=== PATIENT | male | born 1960 | race Caucasian/White ===

== ENCOUNTER 2020-05-18 10:08 | Outpatient (NON) | payer BC, SELFPAY ==
[2020-05-18 14:23] LABS: Influenza Control Positive
[2020-05-19 18:38] LABS: SARS-CoV-2 RNA PCR Positive
== END 2020-05-18 10:09 ==
LOC: ANHCOVIDDT 10:09
PROVIDERS: PCP Family Medicine; Visit Provider Family Medicine
DX: R05 Cough (principal); U07.1 COVID-19
CPT/HCPCS: 87635; 87804; C9803; U0003

== ENCOUNTER 2021-06-25 00:37 | Day surgery (SDC) | payer BC, SELFPAY ==
[2021-06-14 14:24] VITALS: BMI 28.8
--- NOTE | 2021-06-23 19:37 | PM.HPGS ---
History of Present Illness History of Present Illness Consent: Risks, benefits, and alternatives have been discussed and questions answered. Patient agrees to proceed with procedure. Chief complaint: neoplasm screening Narrative: Hai Mills is a 61 year old male referred forcoloncancer screening Review of Systems Review of Systems: All systems reviewed & are unremarkable except as noted in HPI and below PMFSH Past Medical History Medical History Allergies Broken arm Dislocation of finger Hypertension Irritable bowel syndrome Surgical History Surgical History Finger dislocation H/O skin graft History of surgery on arm Family History Family History Father Diabetes mellitus Hyperlipidemia Grandparent Heart disease Grandparent COPD (chronic obstructive pulmonary disease) Other Hypertension Social History Social History Smoking status: Former smoker Second hand tobacco smoke exposure: No Smoking end date: 05/19/91 Alcohol intake: current Substance use: never Substance use type: does not use Living arrangements: alone Gender identity (if verbalized by the patient): Male Spiritual care concerns: No Agree to blood products: Yes Meds Home Medications and Allergies Home Medications Medication Instructions Recorded Confirmed Type cetirizine 10 mg capsule 10 mg PO DAILY #90 cap 05/01/21 06/14/21 Rx lisinopril 10 mg tablet 10 mg PO DAILY #90 tablet 05/01/21 06/14/21 Rx nystatin 100,000 unit/gram topical 1 applic TOPICAL BID #30 g 05/01/21 06/14/21 Rx ointment Allergies Allergy/AdvReac Type Severity Reaction Status Date / Time No Known Allergies Allergy Mild Verified 06/25/21 06:28 Exam Const: General: alert Orientation/consciousness: patient oriented x3 Resp: Auscultation: clear to auscultation bilaterally Cardio: Rhythm: regular rhythm GI: GI Palp: Yes Soft to palpation and No Tenderness to palpation present (GI) Neuro: General: patient oriented x3 Assessment and Plan Assessment and plan (1) Screening for colon cancer: Code(s): Z12.11 - Encounter for screening for malignant neoplasm of colon Status: Acute Assessment and Plan: Colonoscopy with possible biopsy or polypectomy or cautery or injection of substances.
[2021-06-25 06:30] VITALS: BP 127/84; PULSE 76; RESP 18; TEMP 36.4; O2SAT 98
[2021-06-25] MEDS: LACTATED RINGERS 1,000 ML 150 ML IV CONT (06:43)
--- NOTE | 2021-06-25 06:47 | WPDANESEPPF ---
Anes - Initial Pre Proc Eval Procedure: Operation Date: 06/25/21 07:30 Proposed Procedures p Screening Colonoscopy - Juan Carlos Mcgee MD Date/Time: 06/25/21 06:47 Surgeon: Juan Carlos Mcgee MD Pre Op Diagnosis: neoplasm screening Patient Data Age: 61 Gender: M Height: 1.75 m Weight: 86.2 kg Last Vital Signs Temp 36.4 C L 06/25/21 06:30 Pulse 76 06/25/21 06:30 Resp 18 06/25/21 06:30 BP 127/84 06/25/21 06:30 Pulse Ox 98 06/25/21 06:30 Allergies Allergy/AdvReac Type Severity Reaction Status Date / Time No Known Allergies Allergy Mild Verified 06/25/21 06:28 Home Medications Medication Instructions Recorded Confirmed Type cetirizine 10 mg capsule 10 mg PO DAILY #90 cap 05/01/21 06/14/21 Rx lisinopril 10 mg tablet 10 mg PO DAILY #90 tablet 05/01/21 06/14/21 Rx nystatin 100,000 unit/gram topical 1 applic TOPICAL BID #30 g 05/01/21 06/14/21 Rx ointment Patient hx anesthesia problems: none Family hx anesthesia problems: none Results Review: All pre-operative results and documents have been reviewed as part of the pre-operative evaluation. [facility] Past Medical History Medical History Allergies Broken arm Dislocation of finger Hypertension Irritable bowel syndrome Surgical History Surgical History Finger dislocation H/O skin graft History of surgery on arm Family History Family History Father Diabetes mellitus Hyperlipidemia Grandparent Heart disease Grandparent COPD (chronic obstructive pulmonary disease) Other Hypertension Social History Social History Smoking status: Former smoker Second hand tobacco smoke exposure: No Smoking end date: 05/19/91 Alcohol intake: current Substance use: never Substance use type: does not use Living arrangements: alone Gender identity (if verbalized by the patient): Male Spiritual care concerns: No Agree to blood products: Yes Anes - Eval Final PreProcedure Day of Procedure 06/25/21 06:47 Patient weight: overweight Heart: regular rate and rhythm Lungs: clear to auscultation and normal air movement Airway: Mallampati scale class II Neurological: alert and oriented Last oral intake: >/= 8 hours ASA classification: II Emergent: no Anesthetic plan: proceed Anesthesia type and monitoring: general GIVS and standard monitoring Results Review: All pre-operative results and documents have been reviewed as part of the pre-operative evaluation. Informed Consent: The patient's anesthetic plan and its attendant risks and benefits were discussed with the patient/family/POA. Questions were solicited and answers provided to the satisfaction of the patient/family/POA.
[2021-06-25 07:42] VITALS: BP 138/92; PULSE 81; RESP 18; O2SAT 96
[2021-06-25 07:52] VITALS: BP 135/90; PULSE 72; RESP 18; O2SAT 98
[2021-06-25 08:04] VITALS: BP 146/99; PULSE 67; RESP 18; O2SAT 97
== END 2021-06-25 08:06 | disposition home or self-care (01) ==
PROVIDERS: PCP Family Medicine; Visit Provider Internal Medicine Gastroenterology
PROC: 0DJD8ZZ Inspection of Lower Intestinal Tract, Via Natural or Artificial Opening Endoscopic (ICD-10-PCS; CPT 45378; principal; 2021-06-25 07:30)
DX: Z12.11 Encounter for screening for malignant neoplasm of colon (principal); K57.30 Diverticulosis of large intestine without perforation or abscess without bleeding; I10 Essential (primary) hypertension; K58.9 Irritable bowel syndrome, unspecified; Z87.891 Personal history of nicotine dependence
CPT/HCPCS: 45378; J2704; J7120

== ENCOUNTER 2025-01-07 15:45 | Outpatient (RCR) | payer BC, SELFPAY ==
--- NOTE | 2024-12-15 17:34 | PTOPEVAL1 ---
Assessment and note entered by Iris Barry, PT Evaluation Information Assessment Status Evaluation Diagnosis low back pain ICD-10 Condition Codes (PT) Pain in low back M54.50,Weakness R53.1 Subjective Information Pt reports went to ER [place], did a CT scan found gall stones, kidney stones, diverticulosis, and a hernia. Woke up Friday and back didn't feel good, was stiff and hurting but went to work. Friday called in and Friday went to ER. Was put on light duty but job cannot accommodate so was off for a week. 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 A lot of lifting, bending, twisting, and walking back and forth. Sometimes has to go low or high or put a part in. Has been there 7-8 years. Work tries to make accommodations, has carts and courtney's. Reports has had a tricky back for the last 20 or so years Has seen chiropractic previously. Has usually 2-3 years between visits Has PT options at his job. Has done exercises and TENS unit, but did this about 6 months ago. Has provided prednisone, some muscle relaxers, and naproxen. Reports pain may is 100% improved with these medications. Takes muscle relaxers a couple times a day, prednisone and naproxen. Sees PCP again Friday Does have symptoms down right leg to about the knee, outside of leg Reported Pain Level Pain Score 0: Self Report Assessment PT Clinical Summary Pt presents to therapy after back injury approx one week ago. ER visit imaging shows Gall and kidney stones and pt reported herniation though doesn't know where. Reports also has a history of a Tricky back that has caused issues like this in the past. Evaluation shows possible leg length discrepancy vs pelvic upslip, possible discogenic radiculopathy, decreased gluteal strength, decreased flexibility overall, and poor body mechanics. Pt will benefit from PT in order to address deficits, educate in appropriate body mechanics, and promote overall back health and maintenance to reduce flare ups in the future. Plan of Care Interventions Electrical Stimulation,Hot Pack/Cold Pack,Manual Therapy,Mechanical Traction,Neuro Re-education, Therapeutic Activities,Therapeutic Exercise,Self- Care/Home Management,Ultrasound,Other Other Interventions bracing, taping PT Services Indicated Yes Treatment Frequency and 1-2x weekly x 16 visits Duration These treatments will address the objective and functional deficits as defined above. The patient will be advanced safely and appropriately in order for the patient to progress towards his/her prior level of function. Additional exercises will be introduced and as well as a comprehensive home exercise program upon discharge, if needed, ?to ensure carryover of functional gains achieved in the clinic. This treatment plan has been reviewed and agreement upon by the patient.
--- NOTE | 2024-12-15 17:34 | OPREHPOC ---
Outpatient Therapy Plan of Care This is a Multidisciplinary Plan of Care that may contain components documented by all disciplines (PT, OT, and ST.) PT Problem 1 PT Problem #1 Knowledge Deficit PT Goal 1 Goal / Goal Update Pt will be independent in HEP Pt will verbalize understanding of diagnosis and prognosis PT Problem 2 PT Problem #2 Impaired Strength PT Goal 1 Goal / Goal Update Pt will demo 3+/5 or greater strength in BLE to improve knee stability and kinematics with activities PT Goal 2 Goal / Goal Update Pt will demo 4/5 or greater strength in BLE to improve knee stability and kinematics with activities PT Problem 3 PT Problem #3 Impaired Functional Mobility PT Goal 1 Goal / Goal Update Pt will demonstrate appropriate transfer of milk crate from waist height surface to another of equal height with appropriate mechanics to prevent future injury Target Visit 8 PT Goal 2 Goal / Goal Update Pt will demonstrate appropriate lift mechanics with 10lbs in milk crate from floor to waist height to prevent future flare ups Target Visit 16
--- NOTE | 2024-12-31 15:31 | PCPTNOTE ---
Patient called & cancelled scheduled appointment this date due to family issues
--- NOTE | 2025-01-18 13:27 | PTOPDC ---
Assessment and note entered by Iris Barry, PT Evaluation Information Assessment Status Discharge - Pt Not Present Diagnosis low back pain Assessment PT Clinical Summary Pt attended 7 visits with therapy including evaluation. During sessions he would report not having pain, would report stiffness and soreness. After cancelling multiple visits, pt was called and requested discharge stating therapy is not working and he is going to a chiropractor instead. We were unable to perform progress testing to assess improvement thus is unknown objectively if he had improved. Thus patient is being discharged from plan of care per request. Plan of Care PT Services Indicated No
== END 2025-01-18 13:37 | disposition home or self-care (01) ==
LOC: ANHHIPT 15:45
PROVIDERS: PCP Nurse Practitioner Family; Visit Provider Nurse Practitioner Family
DX: M54.50 Low back pain, unspecified (principal)
CPT/HCPCS: 97014; 97110; 97112; 97140; 97162; 97530; G0283